=== PATIENT | male | born 1965 ===

== ENCOUNTER 2017-10-13 06:29 | Emergency (ER) | payer OTHER ==
[2017-10-13 06:29] VITALS: BMI 28.4
[2017-10-13] MEDS ORDERED: Albuterol-Ipratrop 3 mg / 0.5 (3 ml) UD ONE (06:40)
[2017-10-13 06:42] VITALS: TEMP 97.6
[2017-10-13] MEDS ORDERED: Albuterol-Ipratrop 3 mg / 0.5 (3 ml) UD IH STA (07:03)
--- NOTE | 2017-10-13 07:14 | ED PDOC ---
Arrival/HPI - General Chief Complaint: Shortness Of Breath Time Seen by Provider: 10/13/17 07:08 Historian: Patient - History of Present Illness Narrative History of Present Illness (Text): 10/13/17 07:14 Brannon Vogt is a 52 year old male, whose past medical history includes asthma, who presents to the emergency department complaining of shortness of breath and coughing since last night. Patient also notes associated symptoms of headaches and feeling tired. Patient states he was walking in the storm all day yesterday before onset of symptoms. Patient was given an albuterol pump and feel better after use. Patient denies any fever, chest pain, back pain, abdominal pain, dizziness or any other complaints. Time/Duration: Other (last night) Symptom Onset: Gradual Symptom Course: Improving Activities at Onset: Light Past Medical History - Provider Review Nursing Documentation Reviewed: Yes - Cardiac Hx Cardiac Disorders: No - Pulmonary Hx Asthma: Yes - Neurological Hx Neurological Disorder: No - HEENT Hx HEENT Disorder: No - Renal Hx Renal Disorder: No - Endocrine/Metabolic Hx Endocrine Disorders: No - Hematological/Oncological Hx Blood Disorders: No - Integumentary Hx Dermatological Disorder: No - Musculoskeletal/Rheumatological Hx Musculoskeletal Disorders: No - Gastrointestinal Hx Gastrointestinal Disorders: No - Genitourinary/Gynecological Hx Genitourinary Disorders: No - Psychiatric Hx Psychophysiologic Disorder: No Hx Substance Use: No - Anesthesia Hx Anesthesia: No Family/Social History - Physician Review Nursing Documentation Reviewed: Yes Family/Social History: Unknown Family HX Smoking Status: Never Smoked Hx Alcohol Use: No Hx Substance Use: No Allergies/Home Meds Allergies/Adverse Reactions: Allergies ketorolac tromethamine [From Toradol] Allergy (Verified 10/13/17 06:42) ANAPHYLAXIS Home Medications: Home Meds Medication Instructions Recorded Confirmed Albuterol 0.5% [Albuterol 0.5% 1 puff IH PRN PRN 10/13/17 10/13/17 Inhal Jessica (5 mg/ ml) 20 ml] Albuterol HFA [Ventolin HFA 90 0.09 mg IH PRN PRN 10/13/17 10/13/17 mcg/actuation (8 g)] Montelukast [Singulair] 10 mg PO DAILY 10/13/17 10/13/17 Review of Systems - Physician Review All systems were reviewed & negative as marked: Yes - Review of Systems Constitutional: Fatigue Eyes: Normal ENT: Normal Respiratory: SOB, Cough Cardiovascular: Normal. absent: Chest Pain, Palpitations Gastrointestinal: Normal. absent: Abdominal Pain, Diarrhea, Nausea, Vomiting Genitourinary Male: Normal. absent: Dysuria, Frequency, Urinary Output Changes Musculoskeletal: Normal. absent: Back Pain, Neck Pain Skin: Normal. absent: Rash Neurological: Headache. absent: Dizziness Endocrine: Normal Hemo/Lymphatic: Normal Psychiatric: Normal Physical Exam Vital Signs Reviewed: Yes Vital Signs Temp Pulse Resp BP Pulse Ox 10/13/17 09:01 65 18 105/59 L 97 10/13/17 07:13 60 20 108/77 100 10/13/17 06:51 22 100 10/13/17 06:38 97.6 F 60 18 125/75 98 Temperature: Afebrile Blood Pressure: Normal Pulse: Regular Respiratory Rate: Normal Appearance: Positive for: Well-Appearing, Non-Toxic, Comfortable Pain Distress: None Mental Status: Positive for: Alert and Oriented X 3 - Systems Exam Head: Present: Atraumatic, Normocephalic Pupils: Present: PERRL Extroacular Muscles: Present: EOMI Conjunctiva: Present: Normal Mouth: Present: Moist Mucous Membranes Neck: Present: Normal Range of Motion. No: Meningeal Signs, MIDLINE TENDERNESS , JVD Respiratory/Chest: Present: Wheezes (expiratory wheezes). No: Respiratory Distress, Accessory Muscle Use Cardiovascular: Present: Regular Rate and Rhythm, Normal S1, S2. No: Murmurs Abdomen: Present: Normal Bowel Sounds. No: Tenderness, Distention, Peritoneal Signs Back: Present: Normal Inspection. No: CVA Tenderness Upper Extremity: Present: Normal Inspection. No: Cyanosis, Edema Lower Extremity: Present: Normal Inspection. No: Edema Neurological: Present: GCS=15, CN II-XII Intact, Speech Normal Skin: Present: Warm, Dry, Normal Color. No: Rashes Psychiatric: Present: Alert, Oriented x 3, Normal Insight, Normal Concentration Medical Decision Making ED Course and Treatment: 10/13/17 07:20 Impression: 52 year old male presents to the ED complaining of shortness of breath and cough since last night. Plan: -- Duoneb -- Solu Medrol -- Reassess and disposition Progress Notes: 10/13/17 08:29 Re-evaluation. Patient feels better. Patient's lungs are clear. Discussed results and plan to admit with patient who expresses understanding. All questions answered and there is agreement with the plan. - Medication Orders Current Medication Orders: Discontinued Medications Albuterol/Ipratropium (Duoneb 3 Mg/0.5 Mg (3 Ml) Ud) 3 ml IH STAT STA Stop: 10/13/17 07:04 Last Admin: 10/13/17 07:04 Dose: 3 ml Albuterol/Ipratropium (Duoneb 3 Mg/0.5 Mg (3 Ml) Ud) 3 ml IH Q15M GENNARO Stop: 10/13/17 07:46 Last Admin: 10/13/17 07:45 Dose: Not Given Non-Admin Reason: Patient Refused Methylprednisolone (Solu-Medrol) 125 mg IVP STAT STA Stop: 10/13/17 07:09 Last Admin: 10/13/17 07:18 Dose: 125 mg IVP Administration Document 10/13/17 07:18 LIZY (Rec: 10/13/17 07:18 [id number]) Charges for Administration # of IVP Administrations 1 - Scribe Statement The provider has reviewed the documentation as recorded by the Scribe Yana Somemr All medical record entries made by the Scribe were at my direction and personally dictated by me. I have reviewed the chart and agree that the record accurately reflects my personal performance of the history, physical exam, medical decision making, and the department course for this patient. I have also personally directed, reviewed, and agree with the discharge instructions and disposition. Disposition/Present on Arrival - Present on Arrival Any Indicators Present on Arrival: No History of DVT/PE: No History of Uncontrolled Diabetes: No Urinary Catheter: No History of Decub. Ulcer: No History Surgical Site Infection Following: None - Disposition Have Diagnosis and Disposition been Completed?: Yes Diagnosis: Asthma exacerbation Disposition: HOME/ ROUTINE Disposition Time: 08:00 Condition: IMPROVED Discharge Instructions (ExitCare): Asthma, Adult (DC) Additional Instructions: Thank you for letting us take care of you today. The emergency medical care you received today was directed at your acute symptoms. If you were prescribed any medication, please fill it and take as directed. It may take several days for your symptoms to resolve. Return to the Emergency Department if your symptoms worsen, do not improve, or if you have any other problems. Please contact your doctor or call one of the physicians/clinics you have been referred to that are listed on the Patient Visit Information form that is included in your discharge packet. Bring any paperwork you were given at discharge with you along with any medications you are taking to your follow up visit. Our treatment cannot replace ongoing medical care by a primary care provider (PCP) outside of the emergency department. Thank you for allowing the [facility] team to be part of your care today. Follow up with your doctor in 2-3 days for re-evaluation and further management. Prescriptions: predniSONE [Prednisone] 40 mg PO DAILY #10 tab Referrals: Cynthia Rothman DO [Primary Care Provider] - Follow up with primary Forms: WORK NOTE
[2017-10-13] MEDS: Albuterol-Ipratrop 3 mg / 0.5 (3 ml) UD IH SCH ×3 (07:19→07:45)
[2017-10-13 09:01] VITALS: BP 105/59; PULSE 65; RESP 18; O2SAT 97
== END 2017-10-13 09:02 | disposition home or self-care (01) ==
LOC: ED 06:29
DX: J45.901 Unspecified asthma with (acute) exacerbation (principal)
CPT/HCPCS: 96374; 99285; J2930